=== PATIENT | male | born 1960 | race Hispanic/Latino ===

== ENCOUNTER → 2025-03-04 | Outpatient (REF) | payer MEDICARE ==
[~2025-03-04] MED LIST: ASPIRIN EC81 MG PO; CLOPIDOGREL75 MG PO; COREG3.125 MG PO; FENTANYL CITRATE/PF 100MCG/2 ML INJ ONE; JARDIANCE25 MG PO; LISINOPRIL10 MG PO; METFORMIN HCL500 M2 PO; MIDAZOLAM HCL 2 MG/2 ML VIAL ONE; OMEGA 3 1,0001 EACH PO; SODIUM CHLORIDE 0.9% 250ML 250 ML ONE; SPIRONOLACTONE25 MG PO; VITAMIN E400 UNI1 PO
[2025-03-04 11:48] LABS: BASOPHILS % 0.9 % (0.0-1.0); EOSINOPHILS % 1.5 % (0.0-6.0); LYMPHOCYTES % 36.5 % (18.0-39.1); MONOCYTES % 11.9 % (4.4-11.3); NEUTROPHILS % 48.0 % (38.7-80.0); RED CELL DISTRIBUTION WIDTH 12.9 % (11.7-14.4)
[2025-03-04 12:01] LABS: EST GLOMERULAR FILTRATION RATE 99.0 ML/MIN (>=60)
[2025-03-04 12:08] LABS: INR 0.96
== END ==
LOC: US 11:25
PROVIDERS: ATTEND Nurse Practitioner Family
DX: R94.5 Abnormal results of liver function studies (principal)
CPT/HCPCS: 36415; 47000; 76942; 80053; 85025; 85610; 85730; J2250; J3010; J7050; 88307